=== PATIENT | male | born 1995 | race Caucasian/White ===

== ENCOUNTER 2016-11-17 20:02 | Emergency (ER) | payer BC ==
[~2016-11-17 20:02] MED LIST: NO MEDICATIONS
== END 2016-11-17 21:12 | disposition home or self-care (01) ==
LOC: SED 20:02
DX: S01.01XA Laceration without foreign body of scalp, initial encounter (principal); R03.0 Elevated blood-pressure reading, without diagnosis of hypertension; Z88.0 Allergy status to penicillin; Z23 Encounter for immunization; Y93.67 Activity, basketball
CPT/HCPCS: 90471; 90715; 99283